=== PATIENT | male | born 1980 | race Caucasian/White ===

== ENCOUNTER 2023-06-10 13:46 | Outpatient (CLI) | payer BC | END 2023-06-10 13:47 | disposition home or self-care (01) | LOC: DTY/OP 13:46 | PROVIDERS: ATTEND Specialist | DX: E66.01 Morbid (severe) obesity due to excess calories (principal) | CPT/HCPCS: 97802 ==

== ENCOUNTER 2023-06-25 07:46 | Outpatient (CLI) | payer BC ==
[2023-06-25 08:36] LABS: Anion Gap 13 mmol/L (10-20); BUN (Urea Nitrogen) 14 mg/dL (8.9-20.6); Calc. Creatinine Clearance 0 mL/min (70-130); Calcium 8.9 mg/dL (7.8-10.44); Carbon Dioxide 23 mmol/L (22-29); Chloride 107 mmol/L (98-107); Estimated GFR 116; Glucose 151 mg/dL (70-105); Sodium 139 mmol/L (136-145)
== END 2023-06-25 07:47 | disposition home or self-care (01) ==
LOC: LABBT 07:46
PROVIDERS: ATTEND Specialist
DX: Z01.818 Encounter for other preprocedural examination (principal); E66.01 Morbid (severe) obesity due to excess calories
CPT/HCPCS: 80048; 93005; 93010

== ENCOUNTER 2023-06-25 08:00 | Inpatient (IN) | payer OTHER, SELFPAY ==
[2023-07-08] MEDS ORDERED: Heparin 5,000 UNITS/ML VIAL ONE (06:09)
[2023-07-08] MEDS ORDERED: Acetaminophen 500 MG TAB ONE (06:09)
[2023-07-08] MEDS ORDERED: Ketorolac Tromethamine 30 MG/ML VIAL ONE (06:09)
[2023-07-08] MEDS ORDERED: Lidocaine 1% PF 5 ML VIAL ONE ×2 (07:09→07:41)
[2023-07-08] MEDS ORDERED: Rocuronium Bromide 10 MG/ML (10ML VIAL) ONE ×2 (07:09→07:41)
[2023-07-08] MEDS ORDERED: PROPOFOL 20 ML ONE ×2 (07:09→09:43)
[2023-07-08] MEDS ORDERED: fentaNYL PF 100 MCG/2 ML SYRINGE ONE ×2 (07:09→09:43)
[2023-07-08] MEDS ORDERED: PHENYLEPHRINE-NS 100 MCG/ML 10 ML SYRINGE ONE (07:41)
[2023-07-08] MEDS ORDERED: Ondansetron PF 4 MG/2 ML Vial ONE ×2 (07:41→09:43)
[2023-07-08] MEDS ORDERED: PROPOFOL 200 MG/20 ML VIAL ONE (07:41)
[2023-07-08] MEDS ORDERED: CEFAZOLIN 1 GM VIAL ONE (07:49)
[2023-07-08] MEDS ORDERED: Bupivacaine 0.25% HCL 30 ML VIAL ONE (08:15)
[2023-07-08] MEDS ORDERED: Sevoflurane 250 ML INH ANEST BOTTLE ONE (08:23)
[2023-07-08] MEDS ORDERED: SUGAMMADEX SODIUM 200 MG/2 ML VIAL ONE (09:43)
[2023-07-08] MEDS ORDERED: Ondansetron HCl/PF 4 MG/2 ML Vial IVP PRN (10:00)
[2023-07-08] MEDS ORDERED: Promethazine HCl 25 MG/ML VIAL IM PRN ×2 (10:00→12:30)
[2023-07-08] MEDS ORDERED: Morphine 4 MG/ML VIAL SLOW IVP PRN (12:30)
[2023-07-08] MEDS ORDERED: hydrALAZINE 20 MG/ML VIAL SLOW IVP PRN (12:30)
[2023-07-08] MEDS ORDERED: Ipratropium/Albuterol 3 ML NEB NEB PRN (12:30)
[2023-07-08] MEDS ORDERED: Pantoprazole 40 MG VIAL IVP SCH (12:30)
[2023-07-08] MEDS ORDERED: Glucagon 1 MG/ML KIT IM PRN (12:30)
[2023-07-08] MEDS ORDERED: Morphine 2 MG/ML VIAL SLOW IVP PRN (12:30)
[2023-07-08] MEDS ORDERED: Dextrose 5% in Water 1,000 ML IV PRN (12:30)
[2023-07-08] MEDS ORDERED: Dextrose 50% Abboject 50 ML SYRINGE SLOW IVP PRN (12:30)
[2023-07-08] MEDS ORDERED: Glimepiride 2 MG TAB PO SCH (12:30)
[2023-07-08] MEDS ORDERED: diphenhydrAMINE 50 MG/ML VIAL IVP PRN (12:30)
[2023-07-08] MEDS ORDERED: Hydrocodone-Acetamin 15 ML UDCUP PO PRN (12:30)
[2023-07-08 12:32] VITALS: BMI 62.3
[2023-07-08] MEDS: Ketorolac Tromethamine 30 MG/ML VIAL IVP SCH ×3 (13:03→23:56)
[2023-07-08] MEDS: 1/2 NS w/KCL 20 mEq 1,000 ML IV SCH ×2 (13:04→19:41)
[2023-07-08] MEDS: Ondansetron PF 4 MG/2 ML Vial IVP PRN ×2 (14:20→23:55)
[2023-07-08] MEDS: metFORMIN 500 MG TAB PO SCH (16:32)
[2023-07-09 02:02] LABS: Troponin I Less than 0.010 ng/mL (< 0.028)
[2023-07-09 04:22] LABS: #Monocytes 1.1 thou/uL (0.11-0.59); #Neutrophils 14.5 thou/uL (1.40-6.50); %Basophils 0.1 % (0.0-1.0); %Monocytes 6.6 % (0.0-10.0); %Neutrophils 86.7 % (42.0-75.0); Hematocrit 39.1 % (42.0-52.0); Hemoglobin 12.9 g/dL (14.0-18.0); Mean Corpuscular Hemoglobin 29.7 pg (27.0-31.0); Mean Corpuscular Volume 89.9 fl (78.0-98.0); Mean Platelet Volume 9.6 fL (7.4-10.4); Platelet Count 328 10x3/uL (130-400); RBC Distribution Width 13.1 % (11.5-14.5); Red Blood Cell (RBC) Count 4.35 mill/uL (4.70-6.10); White Blood Cell (WBC) Count 16.8 10x3/uL (4.8-10.8)
[2023-07-09 04:56] LABS: Troponin I Less than 0.010 ng/mL (< 0.028)
[2023-07-09 04:57] LABS: Anion Gap 20 mmol/L (10-20); BUN (Urea Nitrogen) 15 mg/dL (8.9-20.6); Calc. Creatinine Clearance 202 mL/min (70-130); Calcium 8.4 mg/dL (7.8-10.44); Carbon Dioxide 15 mmol/L (22-29); Chloride 104 mmol/L (98-107); Estimated GFR 79; Glucose 272 mg/dL (70-105); Potassium 4.5 mmol/L (3.5-5.1); Sodium 134 mmol/L (136-145)
[2023-07-09] MEDS: Ketorolac Tromethamine 30 MG/ML VIAL IVP SCH ×2 (06:14→11:06)
[2023-07-09] MEDS ORDERED: Lactated Ringer's 1,000 ML IV SCH ×2 (06:45→08:45)
[2023-07-09] MEDS: 1/2 NS w/KCL 20 mEq 1,000 ML IV SCH (07:10)
[2023-07-09 08:29] LABS: Troponin I Less than 0.010 ng/mL (< 0.028)
[2023-07-09] MEDS ORDERED: Lactated Ringer's 500 ML IV SCH (08:45)
[2023-07-09] MEDS: Glimepiride 2 MG TAB PO SCH (08:54)
[2023-07-09] MEDS: Ondansetron PF 4 MG/2 ML Vial IVP PRN (08:55)
[2023-07-09] MEDS: Pantoprazole 40 MG VIAL IVP SCH (08:55)
[2023-07-09] MEDS: metFORMIN 500 MG TAB PO SCH ×2 (08:55→16:32)
[2023-07-09 10:13] LABS: #Monocytes 1.2 thou/uL (0.11-0.59); #Neutrophils 13.1 thou/uL (1.40-6.50); %Basophils 0.1 % (0.0-1.0); %Lymphocytes 7.3 % (21.0-51.0); %Monocytes 7.8 % (0.0-10.0); %Neutrophils 83.9 % (42.0-75.0); Hematocrit 34.6 % (42.0-52.0); Hemoglobin 11.6 g/dL (14.0-18.0); Mean Corpuscular HGB CONC 33.5 g/dL (32.0-36.0); Mean Corpuscular Hemoglobin 30.4 pg (27.0-31.0); Mean Corpuscular Volume 90.6 fl (78.0-98.0); Mean Platelet Volume 9.6 fL (7.4-10.4); Platelet Count 295 10x3/uL (130-400); RBC Distribution Width 13.2 % (11.5-14.5); Red Blood Cell (RBC) Count 3.82 mill/uL (4.70-6.10); White Blood Cell (WBC) Count 15.6 10x3/uL (4.8-10.8)
[2023-07-09 10:51] LABS: Troponin I Less than 0.010 ng/mL (< 0.028)
[2023-07-09] MEDS: Insulin Regular 300 UNITS/3 ML VIAL SC PRN ×2 (11:09→16:33)
[2023-07-09 11:22] LABS: Chloride 103 mmol/L (98-107); Potassium 4.3 mmol/L (3.5-5.1); Sodium 133 mmol/L (136-145)
[2023-07-09 11:23] LABS: Calcium 8.3 mg/dL (7.8-10.44); Glucose 272 mg/dL (70-105)
[2023-07-09 11:25] LABS: Anion Gap 18 mmol/L (10-20); Carbon Dioxide 16 mmol/L (22-29)
[2023-07-09 11:27] LABS: BUN (Urea Nitrogen) 21 mg/dL (8.9-20.6); Calc. Creatinine Clearance 157 mL/min (70-130); Estimated GFR 58
[2023-07-09] MEDS: Lactated Ringer's 1,000 ML IV SCH (16:32)
[2023-07-09] MEDS: chlorproMAZINE HCl 25 MG in Sodium Chloride 0.9% 50 ML IVPB PRN (16:33)
[2023-07-09] MEDS ORDERED: Metoprolol Tartrate 5 MG/5 ML VIAL IVP SCH (18:15)
[2023-07-09] MEDS ORDERED: Metoprolol Tartrate 5 MG/5 ML VIAL IVP PRN (19:00)
[2023-07-09] MEDS: Insulin Glargine 30 UNITS/0.3 ML VIAL SC SCH (21:02)
[2023-07-10] MEDS: Lactated Ringer's 1,000 ML IV SCH ×5 (01:04→23:09)
[2023-07-10] MEDS: chlorproMAZINE HCl 25 MG in Sodium Chloride 0.9% 50 ML IVPB PRN ×3 (01:45→20:00)
[2023-07-10 04:46] LABS: #Monocytes 1.3 thou/uL (0.11-0.59); #Neutrophils 8.8 thou/uL (1.40-6.50); %Basophils 0.3 % (0.0-1.0); %Eosinophils 0.2 % (0.0-10.0); %Lymphocytes 16.7 % (21.0-51.0); %Monocytes 10.2 % (0.0-10.0); %Neutrophils 71.8 % (42.0-75.0); Hematocrit 28.9 % (42.0-52.0); Hemoglobin 9.6 g/dL (14.0-18.0); Mean Corpuscular HGB CONC 33.2 g/dL (32.0-36.0); Mean Corpuscular Hemoglobin 30.1 pg (27.0-31.0); Mean Corpuscular Volume 90.6 fl (78.0-98.0); Mean Platelet Volume 10.1 fL (7.4-10.4); Platelet Count 233 10x3/uL (130-400); RBC Distribution Width 13.3 % (11.5-14.5); Red Blood Cell (RBC) Count 3.19 mill/uL (4.70-6.10); White Blood Cell (WBC) Count 12.3 10x3/uL (4.8-10.8)
[2023-07-10 05:25] LABS: Anion Gap 12 mmol/L (10-20); BUN (Urea Nitrogen) 20 mg/dL (8.9-20.6); Calc. Creatinine Clearance 294 mL/min (70-130); Calcium 8.4 mg/dL (7.8-10.44); Carbon Dioxide 22 mmol/L (22-29); Chloride 107 mmol/L (98-107); Estimated GFR 113; Glucose 200 mg/dL (70-105); Potassium 3.9 mmol/L (3.5-5.1); Sodium 137 mmol/L (136-145)
[2023-07-10] MEDS: Pantoprazole 40 MG VIAL IVP SCH (09:39)
[2023-07-10] MEDS: Glimepiride 2 MG TAB PO SCH (09:39)
[2023-07-10] MEDS: Insulin Regular 300 UNITS/3 ML VIAL SC PRN (11:24)
[2023-07-10] MEDS: Insulin Glargine 30 UNITS/0.3 ML VIAL SC SCH (22:08)
[2023-07-11 06:23] LABS: Anion Gap 14 mmol/L (10-20); BUN (Urea Nitrogen) 9 mg/dL (8.9-20.6); Calc. Creatinine Clearance 365 mL/min (70-130); Calcium 8.3 mg/dL (7.8-10.44); Carbon Dioxide 24 mmol/L (22-29); Chloride 104 mmol/L (98-107); Estimated GFR 121; Glucose 129 mg/dL (70-105); Potassium 3.3 mmol/L (3.5-5.1); Sodium 139 mmol/L (136-145)
[2023-07-11 07:25] LABS: #Eosinphils 0.1 thou/uL (0.0-0.7); #Monocytes 0.8 thou/uL (0.11-0.59); #Neutrophils 5.8 thou/uL (1.40-6.50); %Basophils 0.2 % (0.0-1.0); %Eosinophils 1.5 % (0.0-10.0); %Monocytes 8.8 % (0.0-10.0); %Neutrophils 67.6 % (42.0-75.0); Hematocrit 27.2 % (42.0-52.0); Mean Corpuscular HGB CONC 33.1 g/dL (32.0-36.0); Mean Corpuscular Hemoglobin 30.7 pg (27.0-31.0); Mean Corpuscular Volume 92.8 fl (78.0-98.0); Mean Platelet Volume 9.9 fL (7.4-10.4); Platelet Count 235 10x3/uL (130-400); RBC Distribution Width 13.4 % (11.5-14.5); Red Blood Cell (RBC) Count 2.93 mill/uL (4.70-6.10); White Blood Cell (WBC) Count 8.7 10x3/uL (4.8-10.8)
[2023-07-11] MEDS ORDERED: Potassium Chloride 20 MEQ in Premix 1 BAG IVPB SCH (08:00)
[2023-07-11] MEDS: Glimepiride 2 MG TAB PO SCH (08:46)
[2023-07-11] MEDS: Pantoprazole 40 MG VIAL IVP SCH (08:47)
[2023-07-11] MEDS ORDERED: Iopamidol-370 76% 500 ML MDV (1 ML CHARGE) ONE (10:02)
[2023-07-11] MEDS: Lactated Ringer's 1,000 ML IV SCH (16:31)
[2023-07-11] MEDS: Insulin Glargine 30 UNITS/0.3 ML VIAL SC SCH (22:30)
[2023-07-12] MEDS: Lactated Ringer's 1,000 ML IV SCH (00:26)
[2023-07-12 04:05] LABS: #Eosinphils 0.2 thou/uL (0.0-0.7); #Monocytes 0.6 thou/uL (0.11-0.59); #Neutrophils 6.8 thou/uL (1.40-6.50); %Basophils 0.3 % (0.0-1.0); %Eosinophils 2.1 % (0.0-10.0); %Lymphocytes 19.6 % (21.0-51.0); %Monocytes 6.5 % (0.0-10.0); %Neutrophils 70.6 % (42.0-75.0); Hematocrit 26.4 % (42.0-52.0); Hemoglobin 8.8 g/dL (14.0-18.0); Mean Corpuscular HGB CONC 33.3 g/dL (32.0-36.0); Mean Corpuscular Hemoglobin 30.4 pg (27.0-31.0); Mean Corpuscular Volume 91.3 fl (78.0-98.0); Mean Platelet Volume 9.5 fL (7.4-10.4); Platelet Count 265 10x3/uL (130-400); RBC Distribution Width 13.2 % (11.5-14.5); Red Blood Cell (RBC) Count 2.89 mill/uL (4.70-6.10); White Blood Cell (WBC) Count 9.6 10x3/uL (4.8-10.8)
[2023-07-12 04:33] LABS: Anion Gap 15 mmol/L (10-20); BUN (Urea Nitrogen) 8 mg/dL (8.9-20.6); Calc. Creatinine Clearance 341 mL/min (70-130); Calcium 8.3 mg/dL (7.8-10.44); Carbon Dioxide 25 mmol/L (22-29); Chloride 105 mmol/L (98-107); Estimated GFR 119; Glucose 105 mg/dL (70-105); Potassium 3.7 mmol/L (3.5-5.1); Sodium 141 mmol/L (136-145)
[2023-07-12] MEDS: Glimepiride 2 MG TAB PO SCH (09:10)
[2023-07-12] MEDS: Pantoprazole 40 MG VIAL IVP SCH (09:10)
[2023-07-12 12:15] VITALS: BP 145/71; TEMP 98.6
== END 2023-07-12 15:31 | disposition home or self-care (01) | DRG 620 ==
LOC: SURG A 07-08 05:42 → SURG B 07-08 12:27 → 2NO 07-09 01:44
PROVIDERS: ADMIT Specialist; ATTEND Nurse Practitioner Family
PROC: 0DB64Z3 Excision of Stomach, Percutaneous Endoscopic Approach, Vertical (ICD-10-PCS; principal; 2023-07-08)
PROC: 8E0W4CZ Robotic Assisted Procedure of Trunk Region, Percutaneous Endoscopic Approach (ICD-10-PCS; 2023-07-08)
DX: E66.01 Morbid (severe) obesity due to excess calories (principal); E87.20 Acidosis, unspecified; N17.9 Acute kidney failure, unspecified; R18.8 Other ascites; K91.840 Postprocedural hemorrhage of a digestive system organ or structure following a digestive system procedure; E86.1 Hypovolemia; E11.9 Type 2 diabetes mellitus without complications; I10 Essential (primary) hypertension; R00.0 Tachycardia, unspecified; R55 Syncope and collapse; E86.0 Dehydration; Z79.84 Long term (current) use of oral hypoglycemic drugs
CPT/HCPCS: 36415; 36416; 71275; 74177; 80048; 84484; 85025; 88307; 93005; 93010; C9113; J0690; J1644; J1650; J1815; J1885; J2270; J2405; J2704; J3230; J3480; J7120; Q9967; S0020

== ENCOUNTER 2023-08-05 14:19 | Day surgery (SDC) | payer BC ==
[2023-08-05] MEDS ORDERED: Ondansetron PF 4 MG/2 ML Vial IVP PRN (14:35)
[2023-08-05] MEDS ORDERED: Sodium Chloride 0.9% 1,000 ML IV SCH (14:45)
[2023-08-05] MEDS ORDERED: Multivitamins, Adult 10 ML, Thiamine HCl 100 MG in Sodium Chloride 0.9% 1,000 ML IV SCH (14:45)
[2023-08-05] MEDS ORDERED: Ondansetron PF 4 MG/2 ML Vial ONE (15:07)
[2023-08-05 15:28] VITALS: TEMP 97.9
[2023-08-05 17:22] VITALS: BP 126/77
== END 2023-08-05 17:23 | disposition home or self-care (01) ==
LOC: ONC/OP 14:19
PROVIDERS: ATTEND Specialist
DX: E86.0 Dehydration (principal)
CPT/HCPCS: 96365; 96366; 96375; J2405; J3411; J7050

== ENCOUNTER 2023-08-24 08:28 | Outpatient (CLI) | payer BC ==
[2023-08-24] MEDS ORDERED: Barium Sulfate 96% 176 GM BOT (xray ONLY) PO ONE (08:54)
[2023-08-24] MEDS ORDERED: E-Z-HD 98% W/W 340GM BOT (x-ray ONLY) ONE (08:54)
== END 2023-08-24 08:29 | disposition home or self-care (01) ==
LOC: RAD 08:28
PROVIDERS: ATTEND Specialist
DX: R13.10 Dysphagia, unspecified (principal); R11.0 Nausea; Z98.890 Other specified postprocedural states
CPT/HCPCS: 74246